=== PATIENT | female | born 1995 | race Hispanic/Latino ===

== ENCOUNTER 2024-06-25 09:38 | Outpatient (CLI) | payer OTHER | END 2024-06-25 09:39 | disposition home or self-care (01) | LOC: ULT 09:38 | PROVIDERS: ATTEND Nurse Practitioner Family | DX: B16.1 Acute hepatitis B with delta-agent without hepatic coma (principal); Z90.49 Acquired absence of other specified parts of digestive tract | CPT/HCPCS: 76700 ==